=== PATIENT | male | born 1940 | race Caucasian/White ===

== ENCOUNTER 2018-07-09 10:43 | Inpatient (IN) | payer OTHER ==
[2018-07-09 11:51] LABS: ADD MAN DIFF? NO
[2018-07-09 11:52] LABS: BASOPHILS % 0.2 % (0.0-2.0); HEMATOCRIT 37.5 % (42.0-52.0); HEMOGLOBIN 11.9 g/dl (14.0-18.0); LYMPHOCYTES # 0.6 10^3/ul (0.8-2.9); LYMPHOCYTES % 7.6 % (15.0-51.0); MEAN CORPUSCULAR HEMOGLOBIN 27.9 pg (29.0-33.0); MEAN CORPUSCULAR HGB CONC 31.7 g/dl (32.0-37.0); MEAN PLATELET VOLUME 9.5 fl (7.4-10.4); MONOCYTE # 0.7 10^3/ul (0.3-0.9); MONOCYTES % 8.6 % (0.0-11.0); NEUTROPHIL # 6.7 10^3/ul (1.6-7.5); PLATELET COUNT 544 10^3/UL (140-415); RED BLOOD COUNT 4.26 10^6/ul (4.70-6.10); RED CELL DISTRIBUTION WIDTH 13.8 % (11.5-14.5)
[2018-07-09 12:11] LABS: ANION GAP 13 (5-13); BLOOD UREA NITROGEN 28 mg/dl (7-20); CALCIUM 8.7 mg/dl (8.4-10.2); CARBON DIOXIDE 21 mmol/L (21-31); CHLORIDE 104 mmol/L (97-110); CREATININE 1.21 mg/dl (0.61-1.24); GLUCOSE 134 mg/dl (70-220); POTASSIUM 4.8 mmol/L (3.5-5.1); SODIUM 138 mmol/L (135-144)
[2018-07-09 12:19] LABS: TROPONIN-I < 0.012 ng/ml (0.000-0.120)
[2018-07-09] MEDS ORDERED: FENTAnyl 50 MCG/ML VIAL (12:53)
[2018-07-09] MEDS ORDERED: SOD CHLORIDE 0.9% 1,000 ML (12:57)
[2018-07-09] MEDS ORDERED: MIDAZOLAM 1 MG/ML 2 ML INJ (13:23)
[2018-07-09] MEDS ORDERED: LIDOCAINE 1% (MDV) 20 ML INJ (13:23)
[2018-07-09] MEDS ORDERED: ONDANSETRON 4 MG INJ IV (13:30)
[2018-07-09] MEDS ORDERED: NITROGLYCERIN (SL) 0.4 MG TAB SL (13:30)
[2018-07-09] MEDS ORDERED: LORAZEPAM 0.5 MG TAB PO (13:30)
[2018-07-09] MEDS ORDERED: ZOLPIDEM 5 MG TAB PO (13:30)
[2018-07-09 13:41] LABS: URIC ACID 6.5 mg/dl (3.1-7.9)
[2018-07-09 15:49] LABS: FLD PMN% 33.6 %; FLD RBC 1597000 /uL; FLD WBC 2042 /cmm
[2018-07-09 16:01] LABS: FLUID GLUCOSE 104 mg/dl; FLUID TYPE PERICARDIAL FLUID
[2018-07-09 16:02] LABS: FLUID TOTAL PROTEIN 6.2 g/dl
[2018-07-09 16:17] LABS: FLUID LD 7352 U/L; FLUID TYPE PERICARDIAL FLUID
[2018-07-09] MEDS: CEFTRIAXONE 1 GM/50 ML (PMX) 50 ML IVPB (16:32)
[2018-07-09] MEDS: AZITHROMYCIN 500MG/NS (PMX) 250 ML IVPB (16:32)
[2018-07-09] MEDS: DOCUSATE SODIUM 100 MG CAP PO (16:32)
[2018-07-09 16:43] LABS: FLD MN% 66.4 %
[2018-07-09 16:46] LABS: FLD CLARITY BLOODY
[2018-07-09 16:47] LABS: FLD COLOR RED
[2018-07-09] MEDS: ALBUTEROL 0.083% (NEB) 2.5 MG/3 ML AMP HHN ×2 (17:33→23:02)
[2018-07-09] MEDS: ACETAMINOPHEN 325 MG TAB PO (17:46)
[2018-07-09] MEDS: morphine 2 MG INJ IV ×2 (18:14→23:21)
[2018-07-09] MEDS: COLCHICINE 0.6 MG TAB PO (21:04)
[2018-07-09] MEDS: IODIXANOL LOCM 100 ML BTL (22:06)
[2018-07-09] MEDS: SOD CHLORIDE 0.9% 100 ML (22:06)
[2018-07-09] MEDS ORDERED: ENALAPRILAT 1.25 MG INJ IV (23:00)
[2018-07-10] MEDS: DOCUSATE SODIUM 100 MG CAP PO ×3 (01:30→20:56)
[2018-07-10] MEDS: ALBUTEROL 0.083% (NEB) 2.5 MG/3 ML AMP HHN ×2 (01:44→15:25)
[2018-07-10 05:30] LABS: ADD MAN DIFF? NO
[2018-07-10 05:39] LABS: BASOPHIL # 0.1 10^3/ul (0.0-0.1); BASOPHILS % 0.7 % (0.0-2.0); EOSINOPHILS # 0.1 10^3/ul (0.0-0.5); EOSINOPHILS % 0.6 % (0.0-7.0); HEMATOCRIT 41.2 % (42.0-52.0); HEMOGLOBIN 13.5 g/dl (14.0-18.0); LYMPHOCYTES # 0.8 10^3/ul (0.8-2.9); LYMPHOCYTES % 9.8 % (15.0-51.0); MEAN CORPUSCULAR HGB CONC 32.8 g/dl (32.0-37.0); MEAN CORPUSCULAR VOLUME 85.3 fl (82.0-101.0); MEAN PLATELET VOLUME 10.7 fl (7.4-10.4); MONOCYTE # 0.8 10^3/ul (0.3-0.9); MONOCYTES % 10.1 % (0.0-11.0); NEUTROPHIL # 6.5 10^3/ul (1.6-7.5); NEUTROPHILS % 78.1 % (39.0-77.0); PLATELET COUNT 409 10^3/UL (140-415); RED BLOOD COUNT 4.83 10^6/ul (4.70-6.10); RED CELL DISTRIBUTION WIDTH 13.7 % (11.5-14.5)
[2018-07-10 05:39] LABS: WHITE BLOOD COUNT 8.3 10^3/ul (4.8-10.8)
[2018-07-10 05:52] LABS: HEMOGLOBIN A1C 6.8 % (0-5.9)
[2018-07-10] MEDS: METHYLPREDNISOLONE 40 MG INJ IV (05:55)
[2018-07-10 06:04] LABS: ANION GAP 9 (5-13); BLOOD UREA NITROGEN 20 mg/dl (7-20); CALCIUM 8.5 mg/dl (8.4-10.2); CARBON DIOXIDE 25 mmol/L (21-31); CHLORIDE 104 mmol/L (97-110); CHOL/HDL RATIO 6.5 RATIO; CHOLESTEROL 144 mg/dl (100-200); CREATININE 1.07 mg/dl (0.61-1.24); GLUCOSE 154 mg/dl (70-220); HDL CHOLESTEROL 22 mg/dl (31-75); LDL CHOLESTEROL,CALCULATED 95 mg/dl; MAGNESIUM 2.1 mg/dl (1.7-2.5); SODIUM 138 mmol/L (135-144); TRIGLYCERIDES 135 mg/dl (0-149)
[2018-07-10] MEDS: CHOLECALCIFEROL 1,000 UNIT TAB PO (08:39)
[2018-07-10] MEDS: LOSARTAN 50 MG TAB PO (08:39)
[2018-07-10] MEDS: COLCHICINE 0.6 MG TAB PO ×2 (08:39→20:48)
[2018-07-10] MEDS: AMLODIPINE 10 MG TAB PO (08:39)
[2018-07-10] MEDS ORDERED: ASPIRIN 81 MG TAB PO (09:00)
[2018-07-10] MEDS ORDERED: GLUCOSE GEL 15 GRAM TUBE BUCCAL (09:30)
[2018-07-10] MEDS ORDERED: GLUCAGON 1 MG INJ IM (09:30)
[2018-07-10] MEDS ORDERED: GLUCOSE GEL 15 GRAM TUBE PO ×2 (09:30)
[2018-07-10] MEDS ORDERED: DEXTROSE 50% 50 ML SYRINGE IV ×2 (09:30)
[2018-07-10] MEDS: METOPROLOL 50 MG TAB PO ×2 (10:46→20:49)
[2018-07-10] MEDS: predniSONE 20 MG TAB PO (10:46)
[2018-07-10] MEDS ORDERED: morphine LIQ (10 MG/5 ML) CUP PO (11:00)
[2018-07-10] MEDS: INSULIN ASPART [NOVOLOG] 3 ML PEN SC ×3 (12:48→20:46)
[2018-07-10] MEDS: CEFTRIAXONE 1 GM/50 ML (PMX) 50 ML IVPB (13:37)
[2018-07-10] MEDS: AZITHROMYCIN 500MG/NS (PMX) 250 ML IVPB (13:37)
[2018-07-10] MEDS: FUROSEMIDE 40 MG TAB GTB (13:37)
[2018-07-10] MEDS: FUROSEMIDE 40 MG INJ IV (20:47)
[2018-07-11] MEDS: FUROSEMIDE 40 MG INJ IV (06:16)
[2018-07-11] MEDS: INSULIN ASPART [NOVOLOG] 3 ML PEN SC ×4 (07:35→20:51)
[2018-07-11 08:21] LABS: ADD MAN DIFF? NO
[2018-07-11 08:35] LABS: BASOPHILS % 0.3 % (0.0-2.0); EOSINOPHILS % 0.1 % (0.0-7.0); HEMATOCRIT 43.4 % (42.0-52.0); HEMOGLOBIN 14.1 g/dl (14.0-18.0); LYMPHOCYTES % 7.1 % (15.0-51.0); MEAN CORPUSCULAR HEMOGLOBIN 27.6 pg (29.0-33.0); MEAN CORPUSCULAR HGB CONC 32.5 g/dl (32.0-37.0); MEAN CORPUSCULAR VOLUME 85.1 fl (82.0-101.0); MEAN PLATELET VOLUME 9.2 fl (7.4-10.4); MONOCYTE # 1.1 10^3/ul (0.3-0.9); NEUTROPHIL # 11.4 10^3/ul (1.6-7.5); NEUTROPHILS % 83.8 % (39.0-77.0); PLATELET COUNT 654 10^3/UL (140-415); RED CELL DISTRIBUTION WIDTH 13.3 % (11.5-14.5)
[2018-07-11 08:35] LABS: WHITE BLOOD COUNT 13.6 10^3/ul (4.8-10.8)
[2018-07-11] MEDS: COLCHICINE 0.6 MG TAB PO ×2 (09:01→20:51)
[2018-07-11] MEDS: CHOLECALCIFEROL 1,000 UNIT TAB PO (09:01)
[2018-07-11] MEDS: predniSONE 50 MG TAB PO (09:01)
[2018-07-11] MEDS: METOPROLOL 50 MG TAB PO ×2 (09:02→20:52)
[2018-07-11] MEDS: AMLODIPINE 10 MG TAB PO (09:02)
[2018-07-11] MEDS: LOSARTAN 50 MG TAB PO (09:02)
[2018-07-11 10:02] LABS: ANION GAP 9 (5-13); BLOOD UREA NITROGEN 25 mg/dl (7-20); CALCIUM 8.9 mg/dl (8.4-10.2); CARBON DIOXIDE 30 mmol/L (21-31); CHLORIDE 99 mmol/L (97-110); CREATININE 1.36 mg/dl (0.61-1.24); GLUCOSE 135 mg/dl (70-220); PHOSPHORUS 4.5 mg/dl (2.5-4.9); POTASSIUM 4.1 mmol/L (3.5-5.1); SODIUM 138 mmol/L (135-144)
[2018-07-11] MEDS ORDERED: AZITHROMYCIN 500MG/NS (PMX) 250 ML IVPB (10:30)
[2018-07-11] MEDS ORDERED: CEFTRIAXONE 1 GM/50 ML (PMX) 50 ML IVPB (10:30)
[2018-07-11] MEDS: DOCUSATE SODIUM 100 MG CAP PO ×2 (13:37→20:52)
[2018-07-11] MEDS: CEFTRIAXONE 1 GM/50 ML (PMX) 50 ML IVPB (13:39)
[2018-07-11] MEDS: AZITHROMYCIN 500MG/NS (PMX) 250 ML IVPB (13:39)
[2018-07-11 14:06] LABS: ANA SCREEN NEGATIVE (NEGATIVE)
[2018-07-12 05:54] LABS: ADD MAN DIFF? NO
[2018-07-12 06:02] LABS: BASOPHILS % 0.2 % (0.0-2.0); EOSINOPHILS % 0.1 % (0.0-7.0); HEMATOCRIT 43.2 % (42.0-52.0); HEMOGLOBIN 14.2 g/dl (14.0-18.0); LYMPHOCYTES # 1.3 10^3/ul (0.8-2.9); LYMPHOCYTES % 10.8 % (15.0-51.0); MEAN CORPUSCULAR HEMOGLOBIN 27.8 pg (29.0-33.0); MEAN CORPUSCULAR HGB CONC 32.9 g/dl (32.0-37.0); MEAN CORPUSCULAR VOLUME 84.7 fl (82.0-101.0); MEAN PLATELET VOLUME 9.1 fl (7.4-10.4); MONOCYTE # 1.1 10^3/ul (0.3-0.9); MONOCYTES % 9.5 % (0.0-11.0); NEUTROPHIL # 9.1 10^3/ul (1.6-7.5); PLATELET COUNT 680 10^3/UL (140-415); RED CELL DISTRIBUTION WIDTH 13.4 % (11.5-14.5)
[2018-07-12 06:02] LABS: WHITE BLOOD COUNT 11.5 10^3/ul (4.8-10.8)
[2018-07-12 06:25] LABS: ANION GAP 11 (5-13); BLOOD UREA NITROGEN 35 mg/dl (7-20); CALCIUM 8.9 mg/dl (8.4-10.2); CARBON DIOXIDE 27 mmol/L (21-31); CHLORIDE 101 mmol/L (97-110); CREATININE 1.18 mg/dl (0.61-1.24); GLUCOSE 122 mg/dl (70-220); MAGNESIUM 2.1 mg/dl (1.7-2.5); POTASSIUM 4.1 mmol/L (3.5-5.1); SODIUM 139 mmol/L (135-144)
[2018-07-12] MEDS: INSULIN ASPART [NOVOLOG] 3 ML PEN SC ×4 (07:35→21:00)
[2018-07-12] MEDS: AMLODIPINE 10 MG TAB PO (08:18)
[2018-07-12] MEDS: COLCHICINE 0.6 MG TAB PO ×2 (08:19→21:03)
[2018-07-12] MEDS: METOPROLOL 50 MG TAB PO ×2 (08:19→21:04)
[2018-07-12] MEDS: CHOLECALCIFEROL 1,000 UNIT TAB PO (08:19)
[2018-07-12] MEDS: LOSARTAN 50 MG TAB PO (08:19)
[2018-07-12] MEDS: predniSONE 20 MG TAB PO (08:20)
[2018-07-12] MEDS: AMLODIPINE 5 MG TAB PO (09:22)
[2018-07-12 10:35] LABS: HEPATITIS B SURFACE ANTIGEN NEGATIVE (NEGATIVE)
[2018-07-12 10:52] LABS: HEPATITIS C VIRAL ANTIBODY NEGATIVE (NEGATIVE)
[2018-07-12] MEDS: CEFTRIAXONE 1 GM/50 ML (PMX) 50 ML IVPB (12:46)
[2018-07-12] MEDS: DOCUSATE SODIUM 100 MG CAP PO (12:46)
[2018-07-12] MEDS: INFLUENZA VIRUS VACCINE 0.5 ML (DISPENSING) IM* (13:04)
[2018-07-12] MEDS: AZITHROMYCIN 500MG/NS (PMX) 250 ML IVPB (13:31)
[2018-07-13] MEDS: DOCUSATE SODIUM 100 MG CAP PO (01:25)
[2018-07-13 05:15] LABS: ADD MAN DIFF? NO
[2018-07-13 05:16] LABS: WHITE BLOOD COUNT 9.1 10^3/ul (4.8-10.8)
[2018-07-13 05:16] LABS: BASOPHILS % 0.2 % (0.0-2.0); EOSINOPHILS % 0.1 % (0.0-7.0); HEMATOCRIT 44.1 % (42.0-52.0); HEMOGLOBIN 14.4 g/dl (14.0-18.0); LYMPHOCYTES # 1.4 10^3/ul (0.8-2.9); LYMPHOCYTES % 14.9 % (15.0-51.0); MEAN CORPUSCULAR HEMOGLOBIN 27.9 pg (29.0-33.0); MEAN CORPUSCULAR HGB CONC 32.7 g/dl (32.0-37.0); MEAN CORPUSCULAR VOLUME 85.3 fl (82.0-101.0); MONOCYTE # 0.9 10^3/ul (0.3-0.9); MONOCYTES % 9.9 % (0.0-11.0); NEUTROPHIL # 6.8 10^3/ul (1.6-7.5); NEUTROPHILS % 74.2 % (39.0-77.0); PLATELET COUNT 644 10^3/UL (140-415); RED BLOOD COUNT 5.17 10^6/ul (4.70-6.10); RED CELL DISTRIBUTION WIDTH 13.4 % (11.5-14.5)
[2018-07-13 05:50] LABS: ANION GAP 9 (5-13); BLOOD UREA NITROGEN 30 mg/dl (7-20); CALCIUM 8.9 mg/dl (8.4-10.2); CARBON DIOXIDE 29 mmol/L (21-31); CHLORIDE 103 mmol/L (97-110); CREATININE 1.11 mg/dl (0.61-1.24); GLUCOSE 121 mg/dl (70-220); SODIUM 141 mmol/L (135-144)
[2018-07-13] MEDS: INSULIN ASPART [NOVOLOG] 3 ML PEN SC (07:35)
[2018-07-13] MEDS: COLCHICINE 0.6 MG TAB PO (09:40)
[2018-07-13] MEDS: METOPROLOL 50 MG TAB PO (09:41)
[2018-07-13] MEDS: CHOLECALCIFEROL 1,000 UNIT TAB PO (09:41)
[2018-07-13] MEDS: AMLODIPINE 5 MG TAB PO (09:41)
[2018-07-13] MEDS: LOSARTAN 50 MG TAB PO (09:42)
[2018-07-13] MEDS: predniSONE 10 MG TAB PO (09:42)
[2018-07-14] MEDS ORDERED: predniSONE 20 MG TAB PO (09:00)
[2018-07-15] MEDS ORDERED: predniSONE 10 MG TAB PO (09:00)
[2018-07-16 13:27] LABS: NIL 0.03 IU/mL; QUANTIFERON(R)-TB GOLD NEGATIVE (NEGATIVE); TB-NIL 0.01 IU/mL; TB2-NIL 0.07 IU/mL
== END 2018-07-13 10:12 | disposition home or self-care (01) | DRG 314 ==
LOC: ICU 13:11 → E/R 10:43 → REC 12:36 → ICU 15:00
PROC: 0W9D30Z Drainage of Pericardial Cavity with Drainage Device, Percutaneous Approach (ICD-10-PCS; principal; 2018-07-09 13:00)
DX: I31.3 Pericardial effusion (noninflammatory) (principal); I50.31 Acute diastolic (congestive) heart failure; J18.9 Pneumonia, unspecified organism; J45.901 Unspecified asthma with (acute) exacerbation; I31.4 Cardiac tamponade; I11.0 Hypertensive heart disease with heart failure; R73.03 Prediabetes; K21.9 Gastro-esophageal reflux disease without esophagitis; Z22.322 Carrier or suspected carrier of Methicillin resistant Staphylococcus aureus; Z87.891 Personal history of nicotine dependence; M10.9 Gout, unspecified; D50.8 Other iron deficiency anemias; J40 Bronchitis, not specified as acute or chronic; N28.89 Other specified disorders of kidney and ureter; I48.91 Unspecified atrial fibrillation
CPT/HCPCS: 33010; 36415; 71045; 71260; 72196; 72197; 74018; 74183; 76700; 80048; 80061; 82652; 82945; 82962; 83036; 83615; 83735; 84100; 84157; 84443; 84484; 84560; 85025; 86038; 86480; 86803; 87070; 87081; 87102; 87116; 87205; 87340; 88104; 88107; 88305; 89051; 90686; 93005; 93306; 93308; 94640; 94664; 99285-25